=== PATIENT | male | born 1980 | race Caucasian/White ===

== ENCOUNTER 2017-03-01 23:24 | Emergency (ER) | payer OTHER ==
[2017-03-01] MEDS ORDERED: Amoxicill/Clav 875/125mg Tab 1 TAB TAB PO SCH (23:45)
[2017-03-01] MEDS ORDERED: NEOMY/POLYMYX/HC 10 ML OTIC SUSP RIGHT EAR ONE (23:54)
--- NOTE | 2017-03-02 00:08 | PDOC ---
Ear Complaints HPI - General Chief Complaint: Ear Problem / Injury Stated Complaint: RIGHT EAR PAIN Date Seen by Provider: 03/02/17 Time Seen by Provider: 23:45 Source: POSITIVE: Patient Exam Limitations: POSITIVE: No limitations Nurse's Notes Reviewed & Considered: Yes - History of Present Illness Initial Comments: The patient is a 36-year-old male. He presents to the emergency room complaining of a one-day history of right ear pain. He states he was recently treated for a "ear infection" on the right with eardrops. Some associated URI symptoms. No fevers. No headache. No neck pain. No mastoid pain. Location: Right Ear Timing: REPORTS: Gradual, Getting Worse Severity: Moderate Quality: REPORTS: "Pain" Context: DENIES: Foreign Body, Injury Modifying Factors: REPORTS: None Associated Symptoms: REPORTS: Aching Earache Similar Symptoms Previously: Yes (as above) Recent Care Received: REPORTS: Recently Seen, Treated by MD Any Prior Injuries Related to Current Complaint?: No - Patient Home Medications Home Medications: Home Medications Amoxicillin/Potassium Clav [Augmentin 875-125 Tablet] 1 each PO Q12H #18 tablet 03/01/17 Diclofenac Sodium 75 mg PO BID 03/01/17 - Patient Allergies Allergies/Adverse Reactions: Allergies Allergy/AdvReac Type Severity Reaction Status Date / Time No Known Allergies Allergy Verified 03/01/17 23:31 Past Medical History - heen HEENT History: Denies History Cardiovascular History: Denies History Respiratory History: Denies History Gastrointestinal History: Denies History Genitourinary History: Denies History Endocrine History: Denies History Musculoskeletal History: Denies History Prosthesis or Implant: No Neurological History: CVA, Other (please comment) (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.) Blood Disorders: Denies History Psychiatric History: Denies History Cancer History: Denies History In Past Year Been Physically Harmed or Verbally Threatened: No History of MDRO: No History of Other Communicable Diseases: No History of Exposure to Communicable Disease: No Tobacco Use: Never Smoker Do you dip or chew tobacco: No Alcohol Use: None Substance Use Type: None Previous Surgical History: No Past Medical History Reviewed: Reviewed - No Changes ROS - Limitations ROS Limitations: No Limitations Constitution: REPORTS: Denies Symptoms Cardiovascular: REPORTS: Denies Cardiac Symptoms Respiratory: REPORTS: Denies Resp Symptoms Neurological: REPORTS: Denies Neuro Symptoms Gastrointestinal: REPORTS: Denies GI Symptoms Endocrine: REPORTS: Denies Symptoms Musculoskeletal: REPORTS: Denies MS Symptoms Genitourinary: REPORTS: Denies Symptoms Eyes: REPORTS: Denies Symptoms ENT: REPORTS: Earache (Right) Skin: REPORTS: Denies Skin Symptoms Lympathic: REPORTS: Denies Lympathic Symptoms Immunologic: POSITIVE: Denies Symptoms Psychiatric: POSITIVE: Denies Psych Symptoms Ear Complaint Exam - General Appearance General Appearance: POSITIVE: Alert, Cooperative, No Acute Distress, No Evidence of Trauma - HEENT Head / Face: POSITIVE: Atraumatic, Normal Inspection, No Facial Swelling Eyes: POSITIVE: Inspection Normal, PERRL, EOM's Intact, Eyelids Uninjured, Conjunctivae Uninjured, No Nystagmus, No Globe Trauma, Sclera Normal, Normal Corneal Inspection Ears: POSITIVE: Auricle Normal, TM Erythema, Loss of TM Landmarks, Bluging of TM , Other (Some erythema and mild swelling of auditory canal). NEGATIVE: Ears Normal Inspection, TM Normal Inspection, External Canal Normal Nose: POSITIVE: Inspection Normal, No Apparent Trauma, Nares Normal, No CSF Leak Oropharynx: POSITIVE: External Inspection Nml, Pharynx Inspect. Nml, Airway Intact, Voice Normal, Moist Mucous Membranes, No Oral Injury, Lips Normal, Gums Normal, No Drooling, No Thrush, Normal Gag Reflex Dental: POSITIVE: No Dental Injury - Respiratory Respiratory: POSITIVE: No Respiratory Distress, Breath Sounds Normal, Chest Non- Tender - Cardiovascular Cardiovascular: POSITIVE: Regular Rate and Rhythm, Heart Sounds Normal, Equal Pulses, Strong Pulses Peripheral Pulses: Radial (R): 2+, Radial (L): 2+ - Abdomen Abdomen: Soft: (All Quadrants), Normal Bowel Sounds: (All Quadrants), Denies Tenderness: (All Quadrants), No Splenomegaly: (All Quadrants), No Hepatomegaly: (All Quadrants), No Guarding: (All Quadrants), No Rebound: (All Quadrants), No Palpable Pulse: (All Quadrants), No Palpabale Mass: (All Quadrants), No Distention: (All Quadrants), No Rigidity: (All Quadrants) - Skin Skin: POSITIVE: Normal Color, No Skin Rash, Pallor - Neurological / Psychological Neurological: POSITIVE: Affect 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, 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 - VS Reviewed Vital Signs Reviewed: Yes Discharge Clinical Impression: Otitis media, Otitis externa Discharge Disposition: Discharged to Home Condition: Stable Prescriptions / Orders: Amoxicillin/Potassium Clav [Augmentin 875-125 Tablet] 1 each PO Q12H #18 tablet Patient Instructions Given at Discharge: Otitis Media (ED) Additional Instructions: Augmentin, one every 12 hours for 10 days. Keep ears dry. Corticosporin ear drops, 5 drops in right ear 4 times daily. Follow-up with your primary care provider. Return here anytime if condition worsens in any way. Follow Up With: NOT IN DR JOSEPHINE [Primary Care Provider] - (Instructions as above. Follow-up with your primary care provider. Return here anytime if condition worsens.)
[2017-03-02 00:28] VITALS: RESP 18; TEMP 97.2
== END 2017-03-02 00:16 | disposition home or self-care (01) ==
LOC: ER 23:24
DX: H66.91 Otitis media, unspecified, right ear (principal); H60.91 Unspecified otitis externa, right ear
CPT/HCPCS: 99282